=== PATIENT | male | born 1965 | race Caucasian/White ===

== ENCOUNTER 2021-02-28 10:55 | Day surgery (SDC) | payer OTHER ==
[~2021-02-28] VITALS: Ht 167.6 cm; Wt 117.0 kg
[2021-02-28 11:30] VITALS: BP 124/88; PULSE 72; TEMP 97.4
[2021-02-28] MEDS ORDERED: LIPITOR20 MG PO (12:09)
[2021-02-28] MEDS ORDERED: PROTONIX 40MG T40 MG PO (12:09)
[2021-02-28] MEDS ORDERED: ASPIRIN 81M81 MG/TA2 PO (12:10)
[2021-02-28] MEDS ORDERED: TOPROL XL 25MG25 MG PO (12:10)
[2021-02-28] MEDS ORDERED: COZAAR 50MG50 MG/TAB PO (12:11)
[2021-02-28] MEDS ORDERED: HCTZ12.5TAB PO (12:12)
[2021-02-28 14:55] VITALS: BP 127/84; PULSE 59; TEMP 97.3
--- NOTE | 2021-02-28 14:55 | NUR ---
The patient arrived back to [facility] from the recovery room at this time. The patient appears alert and oriented and denies any pain or nausea at this time. The patient agrees to try some iced tea and applesauce at this time. Post operative vital signs were obtained and then the patient ambulated to the bathroom with the stand by assistance of one nurse and appeared to tolerate the activity well. The patient voided without difficulty but did report some burning and a red tinge to his urine.
[2021-02-28 15:10] VITALS: BP 125/78; PULSE 59
--- NOTE | 2021-02-28 15:10 | NUR ---
The patient appears alert and oriented and denies any pain at this time. Dr. Mejia called to talk to the patient regarding the findings of the procedure and the next steps that can be taken.
[2021-02-28 15:24] VITALS: TEMP 97.3
[2021-02-28 15:25] VITALS: BP 128/82; PULSE 59
--- NOTE | 2021-02-28 15:25 | NUR ---
The patient voices a desire to be discharged home. The patient's IV to his left hand was removed and a pressure dressing was applied to the site. The patient is going to use the bathroom and then get dressed. The nurse instructed the patient to notify the staff when he is done and ready to review his discharge instructions.
--- NOTE | 2021-02-28 15:30 | NUR ---
Discharge instructions were reviewed with the patient and his son at this time. They both verbalized understanding and have no questions for the nurse at this time. The patient's son is going to go pull the car up to the patient entrance to meet the patient.
--- NOTE | 2021-02-28 15:37 | NUR ---
The patient was escorted out via wheelchair to a private vehicle by DONG Mccord. The patient's belongings and discharge paperwork were sent with him. The patient's son is present to drive him home.
== END 2021-02-28 15:37 | disposition home or self-care (01) ==
LOC: SDCO 10:55
DX: N20.1 Calculus of ureter (principal); R10.11 Right upper quadrant pain; E78.00 Pure hypercholesterolemia, unspecified; I10 Essential (primary) hypertension; E78.5 Hyperlipidemia, unspecified; G47.33 Obstructive sleep apnea (adult) (pediatric); N13.5 Crossing vessel and stricture of ureter without hydronephrosis; Z99.89 Dependence on other enabling machines and devices; Z90.89 Acquired absence of other organs; Z79.82 Long term (current) use of aspirin; Z79.891 Long term (current) use of opiate analgesic; Z79.899 Other long term (current) drug therapy
CPT/HCPCS: C1726; C1769; C2617; J0690; J1100; J1940; J2405; J2704; J3010; J7120; Q9967

== ENCOUNTER 2021-03-14 11:43 | Day surgery (SDC) | payer OTHER ==
[~2021-03-14] VITALS: Ht 175.3 cm; Wt 116.3 kg
[~2021-03-14 11:43] MED LIST: ASPIRIN 81M81 MG/TA2 PO; COZAAR 50MG50 MG/TAB PO; HCTZ12.5TAB PO; LIPITOR20 MG PO; PROTONIX 40MG T40 MG PO; TOPROL XL 25MG25 MG PO
[2021-03-14 12:54] VITALS: BP 124/89; PULSE 73; TEMP 98.2
[2021-03-14 17:27] VITALS: TEMP 97
[2021-03-14 17:39] VITALS: BP 144/90; PULSE 65
--- NOTE | 2021-03-14 17:39 | NUR ---
Patient returns to room 6 per cart from PACU accompanied by [facility] and is awake and alert. IV fluids infusing. Assisted up to the bathroom and voids and returns to room. Drinking orange juice and eating crackers.
[2021-03-14 17:54] VITALS: BP 139/87; PULSE 66
--- NOTE | 2021-03-14 17:54 | NUR ---
Patient tolerated snack and again voids. Tolerates acitivity well. Denies pain or nausea.
--- NOTE | 2021-03-14 18:01 | NUR ---
IV discontinued and site is free of redness or swelling. Dresses self.
--- NOTE | 2021-03-14 18:07 | NUR ---
Dismissal instructions given and signed. Voices understanding of these.
--- NOTE | 2021-03-14 18:12 | NUR ---
Patient dismissed to home driven by spouse per private vehicle and taken to the emergency room entrance and assisted into vehilce with instructions in hand.
== END 2021-03-14 18:12 | disposition home or self-care (01) ==
LOC: SDCO 11:43
DX: N20.1 Calculus of ureter (principal); I10 Essential (primary) hypertension; E78.5 Hyperlipidemia, unspecified; G47.33 Obstructive sleep apnea (adult) (pediatric); K21.9 Gastro-esophageal reflux disease without esophagitis; E78.00 Pure hypercholesterolemia, unspecified; Z90.89 Acquired absence of other organs; Z79.899 Other long term (current) drug therapy; Z79.82 Long term (current) use of aspirin; Z99.89 Dependence on other enabling machines and devices
CPT/HCPCS: C1769; J0690; J1100; J1940; J2405; J2704; J3010; J7120; Q9967